=== PATIENT | male | born 1980 | race Caucasian/White ===

== ENCOUNTER 2022-04-16 15:18 | Emergency (ER) | payer OTHER ==
[2022-04-16 17:11] LABS: HEMOGLOBIN 11.4 gm/dl (14.0-17.5); RED BLOOD COUNT 4.15 M/UL (4.20-5.50); WHITE BLOOD COUNT 8.4 K/UL (4.5-11.0)
[2022-04-16 18:40] LABS: BUN/CREATININE RATIO 20 (0-10)
[2022-04-16] MEDS ORDERED: LASIX40 MG PO (19:14)
== END 2022-04-16 19:55 | disposition home or self-care (01) ==
LOC: ER1 15:18
PROVIDERS: Physician Assistant Medical
DX: R60.0 Localized edema (principal); G47.30 Sleep apnea, unspecified; I10 Essential (primary) hypertension; F17.210 Nicotine dependence, cigarettes, uncomplicated; Z88.1 Allergy status to other antibiotic agents; E66.01 Morbid (severe) obesity due to excess calories; Z68.41 Body mass index [BMI] 40.0-44.9, adult
CPT/HCPCS: 71045; 80053; 81001; 82550; 82553; 83605; 83690; 83880; 84484; 85025; 87040; 93005; 99284